=== PATIENT | female | born 1980 | race Caucasian/White ===

== ENCOUNTER 2017-09-22 18:49 | Outpatient (CLI) | payer SELFPAY | END 2017-09-22 18:50 | disposition home or self-care (01) | LOC: BICULT 18:49 | DX: N63.20 Unspecified lump in the left breast, unspecified quadrant (principal); N63.10 Unspecified lump in the right breast, unspecified quadrant; Z53.8 Procedure and treatment not carried out for other reasons | CPT/HCPCS: 76641 ==